=== PATIENT | female | born 2000 | race Caucasian/White ===

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

== ENCOUNTER 2018-02-18 17:47 | Emergency (ER) | payer OTHER ==
[2018-02-18 17:20] LABS: CONTROL LINE UCG INT CTR LINE PRESENT; URINE PREG TEST NEGATIVE (NEGATIVE)
[2018-02-18 17:27] LABS: KETONE, URINE AUTO RFX NEGATIVE (NEGATIVE); NITRITE, URINE AUTO RFX NEGATIVE (NEGATIVE); RBC, URINE AUTO RFX 2 /HPF (0-3); SPECIFIC GRAVITY UR AUTO RFX 1.004 (1.002-1.035); SQUAM EPITHELIAL CELL UR AURFX 6 /HPF (0-6)
[2018-02-18 17:29] LABS: LEUKOCYTE ESTERASE UR AUTO RFX 2+ (NEGATIVE); WBC, URINE AUTO RFX 27 /HPF (0-3)
== END 2018-02-18 17:57 | disposition home or self-care (01) ==
LOC: M ED 17:47
DX: N39.0 Urinary tract infection, site not specified (principal); Z79.3 Long term (current) use of hormonal contraceptives
CPT/HCPCS: 84703

== ENCOUNTER 2018-10-21 11:18 | Emergency (ER) | payer OTHER ==
[~2018-10-21] VITALS: Ht 162.6 cm; Wt 56.8 kg
[~2018-10-21 11:18] MED LIST: MACR100C43 PO; MIRE1IUD IU
[2018-10-21] MEDS ORDERED: LEXA1TAB PO (11:23)
[2018-10-21 12:20] LABS: BASO % 0.4 % (0.0-1.0); EOS # 0.2 10^3/uL (0.0-0.50); EOS % 3.4 % (0.0-3.0); HEMATOCRIT 38.6 % (36.0-47.0); HEMOGLOBIN 12.8 g/dl (12.0-15.5); LYMPH # 1.4 10^3/uL (1.5-6.5); LYMPH % 28.9 % (24.0-44.0); MEAN CORPUSCULAR HEMOGLOBIN 31.6 pg (27.0-33.0); MEAN CORPUSCULAR HGB CONC 33.2 g/dl (32.0-36.5); MEAN CORPUSCULAR VOLUME 95.3 fl (80.0-96.0); MONO # 0.3 10^3/uL (0.0-0.8); MONO % 5.5 % (0.0-5.0); NEUTROPHILS # 2.9 10^3/uL (1.8-7.7); NEUTROPHILS % 61.4 % (36.0-66.0); PLATELET COUNT, AUTOMATED 258 10^3/uL (150-450); RED BLOOD COUNT 4.05 10^6/uL (4.00-5.40); WHITE BLOOD COUNT 4.7 10^3/uL (4.0-10.0)
[2018-10-21 12:48] LABS: ALBUMIN 3.9 GM/DL (3.2-5.2); ALT/SGPT 20 U/L (12-78); BILIRUBIN,TOTAL 0.5 MG/DL (0.2-1.0); BLOOD UREA NITROGEN 8 MG/DL (7-18); CALCIUM LEVEL 8.8 MG/DL (8.5-10.1); CARBON DIOXIDE LEVEL 28 MEQ/L (21-32); CHLORIDE LEVEL 108 MEQ/L (98-107); CREATININE FOR GFR 0.66 MG/DL (0.55-1.30); GLUCOSE, FASTING 116 MG/DL (70-100); POTASSIUM SERUM 3.8 MEQ/L (3.5-5.1); SODIUM LEVEL 139 MEQ/L (136-145)
[2018-10-21] MEDS ORDERED: ONDANSETRON 4MG/2ML VIAL (J2405) IV ONE (13:00)
[2018-10-21] MEDS ORDERED: NS 500 ML IV ONE (13:00)
[2018-10-21] MEDS ORDERED: KETOROLAC 30 MG/ML VIAL (J1885) IV ONE (13:00)
--- NOTE | 2018-10-21 13:12 | REP ---
Pelvic ultrasound for heavy bleeding: The study is performed with transabdominal, endovaginal and Doppler ultrasound assessment: There are no comparisons. The uterus is retroverted and normal size measuring 6.9 x 3.3 x 3.6 cm. The myometrium is unremarkable. The endometrium is not thickened measuring 5.8 mm. There is an intrauterine IUD satisfactory position within the endometrial canal in the body of the uterus. Right ovary: The right ovary measures 3.2 x 120 x 1.5 cm and is normal size. There is no dominant right ovarian mass or cyst. There is vascular flow with the Doppler resistive index of the parenchymal arteries measuring 0.54. Left ovary: There is a hypoechoic area in the left ovary, likely a hemorrhagic follicle measuring 2.0 x 1.6 x 1.0 cm. Including this follicle the left ovary is normal size measuring 4.0 x 1.4 x 2.2 cm. There is vascular flow with the Doppler resistive index of the parenchymal arteries measuring 0.56. There is free fluid in the left adnexa. Impression: Probable hemorrhagic follicle in the left ovary. Free fluid in the left adnexa. There is an IUD within the endometrial canal in the body of the uterus. There is vascular flow in both ovaries. The uterus is retroverted. Electronically Signed by Flex Menezes MD 10/21/2018 01:04 P
[2018-10-21] MEDS ORDERED: ZOFR4TAB16 PO (13:21)
[2018-10-21] MEDS ORDERED: NAPR-837 PO (13:21)
[2018-10-21 13:50] VITALS: BP 106/60
== END 2018-10-21 14:02 | disposition home or self-care (01) ==
LOC: M ED 11:18
DX: N83.202 Unspecified ovarian cyst, left side (principal); Z97.5 Presence of (intrauterine) contraceptive device; Z79.899 Other long term (current) drug therapy
CPT/HCPCS: 76830; 76856; 80053; 81001; 81025; 85025; 93976; 96374; 96375; 99284; J1885; J2405

== ENCOUNTER 2018-11-28 12:07 | Emergency (ER) | payer OTHER ==
[~2018-11-28] VITALS: Ht 162.6 cm; Wt 56.8 kg
[~2018-11-28 12:07] MED LIST changes: +LEXA1TAB PO; +NAPR-837 PO; +ZOFR4TAB16 PO
[2018-11-28 12:08] VITALS: BP 119/76
[2018-11-28] MEDS ORDERED: LEXA1TAB PO (12:38)
== END 2018-11-28 12:43 | disposition home or self-care (01) ==
LOC: M ED 12:07
DX: Z76.0 Encounter for issue of repeat prescription (principal); Z79.899 Other long term (current) drug therapy; Z97.5 Presence of (intrauterine) contraceptive device; Z87.891 Personal history of nicotine dependence

== ENCOUNTER 2020-04-09 09:34 | Emergency (ER) | payer OTHER ==
[~2020-04-09] VITALS: Ht 162.6 cm; Wt 61.8 kg
[2020-04-09] MEDS ORDERED: FLUO20CA22 PO (09:45)
[2020-04-09] MEDS ORDERED: METAL LOCK LOOP XX ONE (10:31)
[2020-04-09 11:53] LABS: AMPHETAMINES LEVEL URINE NEGATIVE (NEGATIVE); BARBITURATES URINE NEGATIVE (NEGATIVE); BENZODIAZEPINES URINE NEGATIVE (NEGATIVE); CANNABINOIDS URINE NEGATIVE (NEGATIVE); COCAINE METABOLITE URINE NEGATIVE (NEGATIVE); METHADONE URINE NEGATIVE (NEGATIVE); OPIATES URINE NEGATIVE (NEGATIVE); PHENCYCLIDINE URINE NEGATIVE (NEGATIVE)
[2020-04-09 12:19] VITALS: BP 124/72
== END 2020-04-09 12:21 | disposition home or self-care (01) ==
LOC: M ED 09:34
DX: Z04.89 Encounter for examination and observation for other specified reasons (principal); Z97.5 Presence of (intrauterine) contraceptive device; Z79.899 Other long term (current) drug therapy
CPT/HCPCS: 80307; 99283; G0480